=== PATIENT | female | born 1935 | race Caucasian/White ===

== ENCOUNTER 2016-07-20 19:15 | Inpatient (IN) ==
[~2016-07-20 19:15] MED LIST: Aminoglycoside Consult 1 EACH MC ONE
--- NOTE | 2016-07-20 19:48 | Emergency Department Note ---
Disposition Clinical Impression: UTI (urinary tract infection) Disposition: Admitted As Inpatient Condition: Fair Time of Disposition: 00:32 ([facility]) General Adult HPI - General Chief complaint: ED General Medical Stated complaint: Weight loss, weakness, talking less the past few w Time Seen by Provider: 07/20/16 19:30 Source: patient, family, EMS Mode of arrival: EMS Limitations: physical limitation Nursing Notes Reviewed: Yes Vital Signs Reviewed: Yes - History of Present Illness HPI Narrative: Ultimately female brought in from local nursing care facilities recently been treated for outpatient urinary tract infection patiently. Has been losing weight and has not been feeling well.orthostatic secondary to UTI family physician thought might be related to pneumonia she was sent in for evaluation hospitalization based on her abnormal result patient is brought here daughter is concerned that strongly this is UTI only treated for Klebsiella pneumonia patient does not really know why she is here and also she states otherwise no additional complaints could be obtained Onset (ago): unknown Location: other (Generalized) Pain Scale: 0 Consistency: constant Improves with: nothing Worsens with: nothing Associated symptoms: Reports: confusion, loss of appetite, malaise, nausea/ vomiting, weakness. Denies: chest pain, cough, diaphoresis, fever/chills, headaches, rash, shortness of breath, syncope Treatments Prior to Arrival: other (IV gentamicin) - Related Data Home Medications Medication Instructions Recorded Confirmed Alprazolam [Xanax 0.25 MG Tablet] 0.25 mg PO Q4H PRN 11/30/14 07/20/16 Alprazolam [Xanax 0.5 MG Tablet] 0.5 mg PO HS 11/30/14 07/20/16 Fluticasone Propionate Nasal 1 spray NS DAILY 11/30/14 07/20/16 [Flonase] Furosemide [Lasix] 40 mg PO DAILY 11/30/14 07/20/16 HYDROcodone/Acet 5/325 mg [[place] 1 tab PO Q4HR PRN 11/30/14 07/20/16 5-325 mg] Insulin ASPART [NovoLOG] 2 - 10 unit SQ ACHS 11/30/14 07/20/16 Insulin Glargine,Hum.rec.anlog 50 unit SQ HS 11/30/14 07/20/16 [Lantus Solostar] Insulin NPH Hum/Reg Insulin Hm 45 unit SQ QAM 11/30/14 07/20/16 [Humulin 70-30 Vial] Latanoprost [Xalatan] 1 drop BOTH EYES HS 11/30/14 07/20/16 Levothyroxine [Synthroid] 25 mcg PO 0630 11/30/14 07/20/16 Magnesium Oxide [Mag-Ox] 400 mg PO BID 11/30/14 07/20/16 Montelukast [Singulair] 10 mg PO HS 11/30/14 07/20/16 Multivit-Min/FA/Ca Carb/Vit K 1 each PO DAILY 11/30/14 07/20/16 [Women's 50+ Daily Tablet] RisperiDONE [RisperDAL] 0.25 mg PO DAILY 11/30/14 07/20/16 Sertraline [Zoloft] 150 mg PO DAILY 11/30/14 07/20/16 Tiotropium [Spiriva] 18 mcg IH DAILY 11/30/14 07/20/16 Tolterodine Tartrate [Detrol] 2 mg PO BID #0 11/30/14 07/20/16 Zolpidem [Ambien] 10 mg PO HS PRN 11/30/14 07/20/16 Ascorbic Acid [Vitamin C] 500 mg PO BID 12/14/14 07/20/16 Cholecalciferol (Vitamin D3) 1,000 unit PO DAILY 12/14/14 07/20/16 [Vitamin D3] Ipratropium/Albuterol Neb [Duoneb] 3 ml IH TID 12/14/14 07/20/16 Omeprazole [PriLOSEC] 20 mg PO DAILY PRN 12/14/14 07/20/16 Potassium Chloride 10 meq PO DAILY 12/14/14 07/20/16 Benzocaine/Menthol Omari [Cepacol 1 lozenge PO Q4H PRN 12/25/14 07/20/16 Sore Throat Lozenge] GuaiFENesin Liq [Robitussin Liq] 300 mg PO Q6HR PRN 12/25/14 07/20/16 Loratadine [Claritin] 10 mg PO DAILY PRN 12/25/14 07/20/16 Acetaminophen [Tylenol] 650 mg PO Q6H PRN 03/10/15 07/20/16 Acetylcysteine 600 mg PO TID 03/10/15 07/20/16 [C-Ecgpho-r-Cysteine] Alprazolam [Xanax 0.25 MG Tablet] 0.25 mg PO TID 03/10/15 07/20/16 DiphenhydraMINE [Benadryl] 25 mg PO Q6H PRN 03/10/15 07/20/16 L. Rhamnosus GG/Inulin [Culturelle 1 cap PO BID 03/10/15 07/20/16 Capsule] Simethicone [Gas-X] 80 mg PO BID PRN 03/10/15 07/20/16 Propylene Glycol/Peg 400 [Systane 1 drop BOTH EYES BID PRN 06/16/15 07/20/16 Gel Eye Drops] Propylene Glycol/Peg 400 [Systane 1 drop BOTH EYES Q4H PRN 06/16/15 07/20/16 Gel Eye Drops] Albuterol Neb [Proventil Neb] 2.5 mg IH Q2H PRN 06/30/16 07/20/16 Carvedilol 12.5 mg PO BID 06/30/16 07/20/16 Docusate [Colace] 100 mg PO BID 06/30/16 07/20/16 Fluticasone/Salmeterol [Advair 1 each IH BID 06/30/16 07/20/16 250-50 Diskus] Glimepiride [Amaryl] 1 mg PO QAM 06/30/16 07/20/16 Previous Rx's Medication Instructions Recorded Ferrous Sulfate 325 mg PO BIDWM #60 tablet 05/09/16 Allergies Allergy/AdvReac Type Severity Reaction Status Date / Time codeine Allergy unknown Verified 12/14/15 10:43 Penicillins Allergy unknown Verified 12/14/15 10:43 All systems ED: reviewed and negative except as stated. Constitutional: Reports: weakness. Denies: fever, chills Eyes: Denies: eye pain, eye discharge ENT ED: Denies: ear pain, throat pain Cardiovascular: Denies: chest pain, palpitations, dyspnea on exertion Respiratory: Denies: cough, dyspnea, wheezes Gastrointestinal: Reports: nausea. Denies: abdominal pain, vomiting, hematemesis Genitourinary: Reports: urgency, dysuria, other (Urine odor). Denies: frequency Musculoskeletal: Denies: joint swelling Integumentary: Denies: abrasion, lesions Neurological: Reports: weakness. Denies: headache Psychiatric: Denies: anxiety Endocrine: Reports: fatigue Hematological/Lymphatic: Denies: easy bleeding Allergic/Immunologic: Denies: facial swelling Past Medical History - Past Medical History Attestation: Yes The following information was validated with the patient. Source: patient, old records reviewed, nursing notes reviewed Medical history: Reports: diabetes, glaucoma, hyperlipidemia, renal disease Surgical history: Reports: other Psychiatric history: Reports: no psych history - Social History Smoking Status: Unknown if ever smoked Smokeless Tobacco Status: No Alcohol use: Reports: none Drug use: Reports: none Physical Exam - General Limitations: physical limitation General appearance: alert, in no apparent distress - Head Head exam: atraumatic, normocephalic, normal inspection - Eye Eye exam: Present: normal appearance, PERRL, EOMI - ENT ENT exam: normal exam, normal oropharynx, mucous membranes dry, normal external ear exam, other (Tracheostomy in place) - Neck Neck exam: Present: normal inspection, full ROM, trachea midline - Chest Chest inspection: Present: normal inspection, symmetric chest wall rise - Respiratory Respiratory exam: Present: normal lung sounds bilaterally, other (Wheezing and occasional rhonchi noted) - Cardiovascular Cardiovascular exam: Present: regular rate, normal rhythm, normal heart sounds - Abdominal Exam Abdominal exam: Present: soft, Non-Tender, normal bowel sounds. Absent: mass, pulsatile mass - Extremities Exam Extremities exam: Present: normal inspection. Absent: full ROM (No edema to the lower extremities no calf pain elicited on examination) - Expanded Lower Extremity Exam Gait: not tested/not observed - Back Exam Back exam: Present: normal inspection, full ROM. Absent: muscle spasm - Neurological Exam Neurological exam: Present: alert, oriented X3, CN II-XII intact - Psychiatric Psychiatric exam: Present: flat affect - Skin Skin exam: Present: warm, dry, intact, normal color Course Course Narrative: Seen and examined laboratory data was ordered as well as a chest x-ray as well as urinalysis blood cultures were also ordered there was a significant delay in obtaining her blood work once that was obtained I spoke with Dr. Obando has agreed for admission to his services patient was then admitted transferred to medical services on the floor for further management and evaluation per Dr. Obando Vital Signs Temperature 97.9 F 07/20/16 19:18 Pulse Rate 93 07/20/16 19:18 Respiratory Rate 18 07/20/16 19:18 Blood Pressure 126/56 07/20/16 19:18 O2 Sat by Pulse Oximetry 91 07/20/16 19:18 Temperature 97.9 F 07/21/16 00:15 Pulse Rate 106 07/21/16 00:15 Respiratory Rate 18 07/21/16 00:15 Blood Pressure 100/78 07/21/16 00:15 O2 Sat by Pulse Oximetry 93 07/21/16 00:15 Oxygen Delivery Oxygen Delivery Ventilator Medical Decision Making - MDM Narrative Medical decision making narrative: Since had recent multidrug resistant urinary tract infections concerns was that she had developed an upper respiratory tract there was no history of diarrhea which be concerned for C. difficile daughter there was concerned that this is urinary not etiology workup done for weakness - Medical Records Medical records reviewed: Yes I reviewed the patient's medical records. - Lab Data Lab results reviewed: Yes I reviewed the patient's lab results. Result diagrams: 07/20/16 21:06 07/20/16 08:50 Lab Results 07/20/16 07/20/16 07/20/16 Range/Units 08:50 19:46 19:47 WBC (4.3-11.1) K/mcL RBC (3.82-4.97) M/mcL Hgb (11.5-15.4) g/dL Hct (35.3-44.9) % MCV (83.0-100.0) fL MCH (28.0-33.3) pg MCHC (31.6-35.5) g/dL RDW (11.5-14.5) % Plt Count (140-400) K/mcL MPV (9.4-12.4) fL Immature Gran % (0-4) % Seg Neutrophils % % Lymphocytes % % Monocytes % % Eosinophils % % Basophils % % Neutrophils # (1.6-8.9) K/mcL Lymphocytes # (0.6-4.6) K/mcL Monocytes # (0.0-1.3) K/mcL Eosinophils # (0.0-0.6) K/mcL Basophils # (0.0-0.2) K/mcL PT (9.4-12.1) Seconds INR APTT 29.5 (26.0-36.0) Seconds VBG Lactic Acid (0.5-2.2) mmol/L Sodium 137 (136-145) mEq/L Potassium 4.3 (3.5-4.5) mEq/L Chloride 95 L (98-109) mEq/L Carbon Dioxide 24 (19-29) mEq/L BUN 43 H (7-20) mg/dL Creatinine 2.09 H (0.57-1.11) mg/dL Est GFR ( Amer) 28 L (> 60) Est GFR (Non-Af Amer) 23 L (> 60) BUN/Creatinine Ratio 21 (6-26) Glucose 142 H (70-99) mg/dL Calculated Osmolality 297 (280-300) Calcium 10.0 (8.6-10.8) mg/dL Total Bilirubin 0.5 (0.2-1.2) mg/dL AST 22 (5-34) Units/L ALT 27 (0-55) Units/L Alkaline Phosphatase 181 H (38-126) Units/L Troponin I (0-0.03) ng/mL B-Natriuretic Peptide (0-100) pg/mL Serum Total Protein 9.0 H (6.0-8.3) g/dL Albumin 2.6 L (3.5-5.0) g/dL Globulin 6.4 H (2.4-3.5) g/dL Albumin/Globulin Ratio 0.4 L (1.1-2.2) TSH (0.350-4.840) mcIU/mL Urine Color Dark Yellow (Yellow) Urine Clarity Cloudy A (Clear) Urine pH 7.0 (5.0-8.0) pH Units Ur Specific [place] 1.015 (1.010-1.025) Urine Protein >=300 H (Neg-Trace) mg/dL Urine Glucose (UA) Normal (Normal) mg/dL Urine Ketones Negative (Negative) mg/dL Urine Blood Large H (Negative) Urine Nitrite Negative (Negative) Urine Bilirubin Negative (Negative) Urine Urobilinogen Normal (Normal) mg/dL Ur Leukocyte Esterase Large H (Negative) Urine Microscopic WBC TNTC H (0-3) per hpf Ur Culture Indicated? YES A (NO) 07/20/16 07/20/16 07/20/16 Range/Units 19:47 19:47 21:06 WBC 13.9 H (4.3-11.1) K/mcL RBC 4.44 (3.82-4.97) M/mcL Hgb 12.1 (11.5-15.4) g/dL Hct 38.7 (35.3-44.9) % MCV 87.2 (83.0-100.0) fL MCH 27.3 L (28.0-33.3) pg MCHC 31.3 L (31.6-35.5) g/dL RDW 15.2 H (11.5-14.5) % Plt Count 392 (140-400) K/mcL MPV 9.6 (9.4-12.4) fL Immature Gran % 0.4 (0-4) % Seg Neutrophils % 77.6 % Lymphocytes % 14.7 % Monocytes % 6.6 % Eosinophils % 0.5 % Basophils % 0.2 % Neutrophils # 10.8 H (1.6-8.9) K/mcL Lymphocytes # 2.0 (0.6-4.6) K/mcL Monocytes # 0.9 (0.0-1.3) K/mcL Eosinophils # 0.1 (0.0-0.6) K/mcL Basophils # 0.0 (0.0-0.2) K/mcL PT 16.6 H (9.4-12.1) Seconds INR 1.5 APTT (26.0-36.0) Seconds VBG Lactic Acid 1.0 (0.5-2.2) mmol/L Sodium (136-145) mEq/L Potassium (3.5-4.5) mEq/L Chloride (98-109) mEq/L Carbon Dioxide (19-29) mEq/L BUN (7-20) mg/dL Creatinine (0.57-1.11) mg/dL Est GFR ( Amer) (> 60) Est GFR (Non-Af Amer) (> 60) BUN/Creatinine Ratio (6-26) Glucose (70-99) mg/dL Calculated Osmolality (280-300) Calcium (8.6-10.8) mg/dL Total Bilirubin (0.2-1.2) mg/dL AST (5-34) Units/L ALT (0-55) Units/L Alkaline Phosphatase (38-126) Units/L Troponin I (0-0.03) ng/mL B-Natriuretic Peptide (0-100) pg/mL Serum Total Protein (6.0-8.3) g/dL Albumin (3.5-5.0) g/dL Globulin (2.4-3.5) g/dL Albumin/Globulin Ratio (1.1-2.2) TSH (0.350-4.840) mcIU/mL Urine Color (Yellow) Urine Clarity (Clear) Urine pH (5.0-8.0) pH Units Ur Specific [place] (1.010-1.025) Urine Protein (Neg-Trace) mg/dL Urine Glucose (UA) (Normal) mg/dL Urine Ketones (Negative) mg/dL Urine Blood (Negative) Urine Nitrite (Negative) Urine Bilirubin (Negative) Urine Urobilinogen (Normal) mg/dL Ur Leukocyte Esterase (Negative) Urine Microscopic WBC (0-3) per hpf Ur Culture Indicated? (NO) 07/20/16 07/20/16 07/20/16 Range/Units 21:06 21:06 21:09 WBC (4.3-11.1) K/mcL RBC (3.82-4.97) M/mcL Hgb (11.5-15.4) g/dL Hct (35.3-44.9) % MCV (83.0-100.0) fL MCH (28.0-33.3) pg MCHC (31.6-35.5) g/dL RDW (11.5-14.5) % Plt Count (140-400) K/mcL MPV (9.4-12.4) fL Immature Gran % (0-4) % Seg Neutrophils % % Lymphocytes % % Monocytes % % Eosinophils % % Basophils % % Neutrophils # (1.6-8.9) K/mcL Lymphocytes # (0.6-4.6) K/mcL Monocytes # (0.0-1.3) K/mcL Eosinophils # (0.0-0.6) K/mcL Basophils # (0.0-0.2) K/mcL PT (9.4-12.1) Seconds INR APTT (26.0-36.0) Seconds VBG Lactic Acid (0.5-2.2) mmol/L Sodium (136-145) mEq/L Potassium (3.5-4.5) mEq/L Chloride (98-109) mEq/L Carbon Dioxide (19-29) mEq/L BUN (7-20) mg/dL Creatinine (0.57-1.11) mg/dL Est GFR ( Amer) (> 60) Est GFR (Non-Af Amer) (> 60) BUN/Creatinine Ratio (6-26) Glucose (70-99) mg/dL Calculated Osmolality (280-300) Calcium (8.6-10.8) mg/dL Total Bilirubin (0.2-1.2) mg/dL AST (5-34) Units/L ALT (0-55) Units/L Alkaline Phosphatase (38-126) Units/L Troponin I 0.02 (0-0.03) ng/mL B-Natriuretic Peptide 99 (0-100) pg/mL Serum Total Protein (6.0-8.3) g/dL Albumin (3.5-5.0) g/dL Globulin (2.4-3.5) g/dL Albumin/Globulin Ratio (1.1-2.2) TSH 1.837 (0.350-4.840) mcIU/mL Urine Color (Yellow) Urine Clarity (Clear) Urine pH (5.0-8.0) pH Units Ur Specific [place] (1.010-1.025) Urine Protein (Neg-Trace) mg/dL Urine Glucose (UA) (Normal) mg/dL Urine Ketones (Negative) mg/dL Urine Blood (Negative) Urine Nitrite (Negative) Urine Bilirubin (Negative) Urine Urobilinogen (Normal) mg/dL Ur Leukocyte Esterase (Negative) Urine Microscopic WBC (0-3) per hpf Ur Culture Indicated? (NO) - Radiology Data Radiology results reviewed: Yes I reviewed the patient's radiology results. ITS Impressions Chest X-Ray 07/20/16 19:46 IMPRESSION: Stable chest demonstrating hypoaeration at the lung bases D/ / Denys Berumen MD / Denys Berumen MD Interpreting Provider: Denys Berumen MD - EKG Data EKG #1 EKG attestation: Yes I reviewed and interpreted this EKG. EKG results narrative: HR 95 prr 186 QRS 80 QT 338 axis XXXV Critical Care Time Critical Care Time: No
[2016-07-20 20:47] LABS: Eosinophils # 0.1 K/mcL (0.0-0.6)
[2016-07-20 21:10] LABS: Albumin 2.6 g/dL (3.5-5.0); Albumin/Globulin Ratio 0.4 (1.1-2.2); Bilirubin,Total 0.5 mg/dL (0.2-1.2); Globulin 6.4 g/dL (2.4-3.5); Potassium 4.3 mEq/L (3.5-4.5)
[2016-07-20 21:45] LABS: INR 1.5; Prothrombin Time 16.6 Seconds (9.4-12.1)
[2016-07-20 21:48] LABS: Monocytes # 0.9 K/mcL (0.0-1.3)
[2016-07-20 21:49] LABS: Hematocrit 38.7 % (35.3-44.9); Hemoglobin 12.1 g/dL (11.5-15.4); Neutrophils # 10.8 K/mcL (1.6-8.9); Red Blood Count 4.44 M/mcL (3.82-4.97)
[2016-07-20 21:50] LABS: Mean Corpuscular HGB Conc 31.3 g/dL (31.6-35.5); Mean Corpuscular Hemoglobin 27.3 pg (28.0-33.3); Mean Corpuscular Volume 87.2 fL (83.0-100.0); Platelet Count 392 K/mcL (140-400); Red Cell Distribution Width 15.2 % (11.5-14.5)
[2016-07-20 21:51] LABS: Eosinophils % 0.5 %; Immature Granulocytes % 0.4 % (0-4); Lymphocytes % 14.7 %; Mean Platelet Volume 9.6 fL (9.4-12.4); Monocytes % 6.6 %; Segmented Neutrophils % 77.6 %
[2016-07-20 21:52] LABS: Basophils % 0.2 %
[2016-07-20 23:30] LABS: Clarity,Urine Cloudy (Clear); Color,Urine Dark Yellow (Yellow)
[2016-07-20 23:35] LABS: Bilirubin,Urine Negative (Negative); Leukocyte Esterase,Urine Large (Negative)
[2016-07-20 23:36] LABS: Blood,Urine Large (Negative); Glucose,Urine (UA) Normal (Normal); Ketones,Urine Negative (Negative); Specific Gravity,Urine 1.015 (1.010-1.025)
[2016-07-20 23:37] LABS: Protein,Urine >=300 mg/dL (Neg-Trace); Urobilinogen,Urine Normal (Normal)
[2016-07-20 23:38] LABS: Nitrite,Urine Negative (Negative)
[2016-07-20 23:39] LABS: WBC,Urine TNTC per hpf (0-3)
[2016-07-21] MEDS ORDERED: CefTRIAXone 1,000 MG in D5% in Water (Mini-Bag+) 100 ML IVPB STA (00:30)
[2016-07-21] MEDS ORDERED: Vancomycin 1,000 MG in D5% in Water 250 ML IVPB ONE ×2 (00:30→16:10)
[2016-07-21] MEDS ORDERED: D5% in Water 1,000 ML IVC PRN (02:35)
[2016-07-21] MEDS ORDERED: Artificial Tears SOLN 15 ML BOTTLE BOTH EYES PRN (02:35)
[2016-07-21] MEDS ORDERED: Loratadine 10 MG TABLET PO PRN (02:35)
[2016-07-21] MEDS ORDERED: *HR* HYDROcodone/Acet 5/325 mg TABLET PO PRN (02:35)
[2016-07-21] MEDS ORDERED: GuaiFENesin Liq 200 MG/10 ML UDC PO PRN (02:35)
[2016-07-21] MEDS ORDERED: [UNRECOGNIZED DRUG - OTHER] BOTH EYES PRN (02:35)
[2016-07-21] MEDS ORDERED: GENTAMICIN IVPB SCH (02:35)
[2016-07-21] MEDS ORDERED: 0.9 % Sodium Chloride 1,000 ML IVC SCH (02:35)
[2016-07-21] MEDS ORDERED: Naloxone 0.4 MG/ML INJ IVP PRN (02:35)
[2016-07-21] MEDS ORDERED: Acetaminophen 325 MG TABLET PO PRN (02:35)
[2016-07-21] MEDS ORDERED: Ibuprofen 400 MG TABLET PO PRN (02:35)
[2016-07-21] MEDS ORDERED: *HR* Promethazine 25 MG/ML VIAL IVP PRN (02:35)
[2016-07-21] MEDS ORDERED: Dextrose Gel 15 GM PO PRN ×2 (02:35)
[2016-07-21] MEDS ORDERED: POLYETHYLENE GLYCOL 400 BOTH EYES PRN (02:35)
[2016-07-21] MEDS ORDERED: PROPYLENE GLYCOL BOTH EYES PRN (02:35)
[2016-07-21] MEDS ORDERED: *HR* Dextrose 50 % in Water (Syg) 50 ML SYRINGE IVP PRN (02:35)
[2016-07-21] MEDS ORDERED: Simethicone 80 MG TAB.CHEW PO PRN (02:35)
[2016-07-21] MEDS: Levothyroxine 25 MCG TABLET PO SCH (05:31)
[2016-07-21] MEDS ORDERED: *HR* Glimepiride 2 MG TABLET PO SCH (07:30)
[2016-07-21 07:58] LABS: Basophils % 0.2 %; Eosinophils % 0.2 %; Hematocrit 37.3 % (35.3-44.9); Hemoglobin 11.8 g/dL (11.5-15.4); Immature Granulocytes % 0.4 % (0-4); Lymphocytes # 1.7 K/mcL (0.6-4.6); Lymphocytes % 12.2 %; Mean Corpuscular HGB Conc 31.6 g/dL (31.6-35.5); Mean Corpuscular Hemoglobin 27.4 pg (28.0-33.3); Mean Corpuscular Volume 86.5 fL (83.0-100.0); Mean Platelet Volume 10.4 fL (9.4-12.4); Monocytes # 0.8 K/mcL (0.0-1.3); Monocytes % 5.9 %; Neutrophils # 11.4 K/mcL (1.6-8.9); Platelet Count 315 K/mcL (140-400); Red Blood Count 4.31 M/mcL (3.82-4.97); Red Cell Distribution Width 15.5 % (11.5-14.5); Segmented Neutrophils % 81.1 %
[2016-07-21 08:12] LABS: Calcium 9.8 mg/dL (8.6-10.8); Magnesium 2.6 mg/dL (1.6-2.6); Phosphorous 4.6 mg/dL (2.3-4.7); Potassium 4.4 mEq/L (3.5-4.5)
[2016-07-21] MEDS: Cholecalciferol (D-3) 1,000 UNIT TABLET PO SCH (08:17)
[2016-07-21] MEDS: Multivit/Ca/Min/Fe/FA 1 TAB TABLET PO SCH (08:17)
[2016-07-21] MEDS: Lactobacillus 1 EACH CAP.SPRINK PO SCH ×2 (08:18→21:42)
[2016-07-21] MEDS: Ipratropium/Albuterol Neb 3 ML IH SCH ×3 (08:27→14:01)
[2016-07-21] MEDS: Tolterodine LA (24 HR) 2 MG CAP.ER.24H PO SCH ×2 (08:35→21:47)
[2016-07-21] MEDS: Insulin LISPRO 300 UNITS/3 ML VIAL SQ SCH ×4 (08:35→21:54)
[2016-07-21] MEDS: Budesonide/Formoterol 80/4.5 MDI IH SCH ×2 (08:37→22:15)
[2016-07-21] MEDS: Tiotropium 18 MCG inhalation IH SCH (08:38)
[2016-07-21] MEDS ORDERED: Gentamicin 120 MG in 0.9 % Sodium Chloride 100 ML IVPB ONE (09:00)
[2016-07-21] MEDS ORDERED: Ascorbic Acid 500 MG TABLET PO SCH (09:00)
[2016-07-21] MEDS ORDERED: Magnesium Oxide 400 MG TABLET PO SCH (09:00)
[2016-07-21] MEDS ORDERED: Insulin NPH/REG 70/30 100 UNIT/ML (x5UNIT) SQ SCH (09:00)
[2016-07-21] MEDS ORDERED: Gentamicin 80 MG in 0.9 % Sodium Chloride 100 ML IVPB ONE (09:00)
[2016-07-21] MEDS ORDERED: Furosemide 40 MG TABLET PO SCH (09:00)
[2016-07-21] MEDS ORDERED: Gentamicin 40 MG in 0.9 % Sodium Chloride 100 ML IVPB ONE (09:00)
[2016-07-21] MEDS: Miconazole 2% cream 118 GM TUBE TP SCH ×2 (09:05→21:48)
[2016-07-21] MEDS: Fluticasone Propionate Nasal 50 MCG/SPRAY BOTTLE NS SCH (09:48)
[2016-07-21 12:07] LABS: ABG HCO3 30.8 mEQ/L (21-27); ABG PCO2 45 mmHg (35-45); ABG PH 7.45 pH Units (7.32-7.45); ABG PO2 77 mmHg (85-104); ABG TCO2 32.1 mEq/L (20-26)
[2016-07-21 12:08] LABS: ABG Base Excess 6.7 mEq/L (-2.0 to 3.0); ABG Oxygen Saturation 96 % (95-98); Blood Gas FiO2 44 %; Blood Gas Liter Flow 6 L/MIN; Blood Gas Respiration Rate 14
[2016-07-21 12:09] LABS: Blood Gas PEEP 5 cm H2O; Blood Gas VT 500 cc
--- NOTE | 2016-07-21 13:32 | Electrocardiograph Report ---
[address] [address] Test Date: 2016-07-20 Pat Name: Mag Monique Department: [id number] Room: [facility] Gender: F Combination Presser: Emery : 1935 Requested By: Lorie Luo Order Number: [id number] Reading MD: Tanvir Saldana MD Measurements Intervals [employer] Rate: 95 P: 72 NH: 186 QRS: 35 QRSD: 80 T: 4 QT: 338 QTc: 391 Interpretive Statements SINUS RHYTHM LOW QRS VOLTAGE IN PRECORDIAL LEADS Electronically Signed On 07-21-2016 13:31:21 EDT by Tanvir Saldana MD
[2016-07-21] MEDS: Albuterol 2.5 MG/3 ML NEBULIZER IH PRN (13:58)
--- NOTE | 2016-07-21 15:40 | Internal Med History&Physical ---
Date of Encounter: 07/21/16 Time of Encounter: 15:10 Assessment and Plan (1) Pneumonia Current visit: No Status: Acute Chest CT shows left lower lobe effusion with possible compressive atelectasis and likely pneumonia based on clinical findings. She will be started on Azactam , vancomycin, and clindamycin. Lactobacillus will be given. Culture will be obtained prior to initiating antibiotics. Qualifiers: Pneumonia type: due to unspecified organism Laterality: bilateral Lung location: lower lobe of lung Qualified Code(s): J18.9 - Pneumonia, unspecified organism (2) Diabetes Current visit: No Status: Chronic Hemoglobin A1c was 6.1% on 07/20/2016. She appears to be diet-controlled Qualifiers: Diabetes mellitus type: type 2 Diabetes mellitus complication status: with kidney complications Diabetes mellitus complication detail: with chronic kidney disease Diabetes mellitus lobsterman insulin use: without lobsterman use Chronic kidney disease stage: stage 3 (moderate) Qualified Code(s): E11.22 - Type 2 diabetes mellitus with diabetic chronic kidney disease; N18.3 - Chronic kidney disease, stage 3 (moderate) (3) Hypothyroid Current visit: No Status: Chronic TSH was normal at 1.837 on 07/20/2016. Continue present dose Synthroid Qualifiers: Hypothyroidism type: unspecified Qualified Code(s): E03.9 - Hypothyroidism , unspecified (4) CKD (chronic kidney disease) stage 3, GFR 30-59 ml/min Current visit: Yes Status: Acute We will monitor renal indices. Internal Medicine - H&P: HPI Chief complaint: Weakness, lethargy, possible UTI Admitted From: Long-term Nursing Facility Plans for Post Hospital Care: Transfer [facility] History of present illness: Ms. Monique is a 81 year old female who [facility] after her daughter became concerned she might have recurrent urinary tract infection. The patient had been hospitalized at [facility] June 30- with diagnosis of UTI. Urine culture showed Escherichia coli and MDRo Klebsiella. The discharge summary 07/04/2016 states a second culture showed no MDRO and she was treated only for the Escherichia coli. [facility] the [facility] I gave her 5 days of IV gentamicin to treat MDR Klebsiella. She has remained lethargic and did not appear back to her baseline. She was evaluated in emergency room and admitted to [facility] floor for ongoing care needs. She is lethargic at this time and does not attempt to communicate. She does follow some commands. She has chronic respiratory failure with tracheostomy and ventilator dependency. Past Med Surg Social Fam HX - Past Medical History Medical history: COPD, diabetes, glaucoma, hyperlipidemia, renal disease Psychiatric history: anxiety, depression - Past Surgical History Surgical History: appendectomy - Social History Smoking Status: Never smoker Smokeless Tobacco Status: No Alcohol use: none Drug use: none Internal Medicine - H&P: Meds Alprazolam [Xanax 0.25 MG Tablet] 0.25 mg PO Q4H PRN 11/30/14 [History] Alprazolam [Xanax 0.5 MG Tablet] 0.5 mg PO HS 11/30/14 [History] Fluticasone Propionate Nasal [Flonase] 1 spray NS DAILY 11/30/14 [History] Furosemide [Lasix] 40 mg PO DAILY 11/30/14 [History] HYDROcodone/Acet 5/325 mg [[place] 5-325 mg] 1 tab PO Q4HR PRN 11/30/14 [History] Insulin ASPART [NovoLOG] 2 - 10 unit SQ ACHS 11/30/14 [History] Latanoprost [Xalatan] 1 drop BOTH EYES HS 11/30/14 [History] Levothyroxine [Synthroid] 25 mcg PO 0630 11/30/14 [History] Magnesium Oxide [Mag-Ox] 400 mg PO BID 11/30/14 [History] Montelukast [Singulair] 10 mg PO HS 11/30/14 [History] Multivit-Min/FA/Ca Carb/Vit K [Women's 50+ Daily Tablet] 1 each PO DAILY [History] RisperiDONE [RisperDAL] 0.25 mg PO DAILY 11/30/14 [History] Sertraline [Zoloft] 150 mg PO DAILY 11/30/14 [History] Tiotropium [Spiriva] 18 mcg IH DAILY 11/30/14 [History] Tolterodine Tartrate [Detrol] 2 mg PO BID #0 11/30/14 [History] Zolpidem [Ambien] 10 mg PO HS PRN 11/30/14 [History] Ascorbic Acid [Vitamin C] 500 mg PO BID 12/14/14 [History] Cholecalciferol (Vitamin D3) [Vitamin D3] 1,000 unit PO DAILY 12/14/14 [History] Ipratropium/Albuterol Neb [Duoneb] 3 ml IH TID 12/14/14 [History] Omeprazole [PriLOSEC] 20 mg PO DAILY PRN 12/14/14 [History] Potassium Chloride 10 meq PO DAILY 12/14/14 [History] Benzocaine/Menthol [place] [Cepacol Sore Throat Lozenge] 1 lozenge PO Q4H PRN [History] GuaiFENesin Liq [Robitussin Liq] 300 mg PO Q6HR PRN 12/25/14 [History] Loratadine [Claritin] 10 mg PO DAILY PRN 12/25/14 [History] Acetaminophen [Tylenol] 650 mg PO Q6H PRN 03/10/15 [History] Acetylcysteine [U-Vfyorc-i-Cysteine] 600 mg PO TID 03/10/15 [History] Alprazolam [Xanax 0.25 MG Tablet] 0.25 mg PO TID 03/10/15 [History] Simethicone [Gas-X] 80 mg PO BID PRN 03/10/15 [History] Propylene Glycol/Peg 400 [Systane Gel Eye Drops] 1 drop BOTH EYES Q4H PRN [History] Ferrous Sulfate 325 mg PO BIDWM #60 tablet 05/09/16 [Rx] Albuterol Neb [Proventil Neb] 2.5 mg IH Q2H PRN 06/30/16 [History] Carvedilol 12.5 mg PO BID 06/30/16 [History] Docusate [Colace] 100 mg PO BID 06/30/16 [History] Fluticasone/Salmeterol [Advair 250-50 Diskus] 1 each IH BID 06/30/16 [History] Allergies codeine Allergy (Verified 12/14/15 10:43) unknown Penicillins Allergy (Verified 12/14/15 10:43) unknown All Systems PM: A 10-system review of systems was performed and is negative for pertinent findings except as documented above in the HPI. Review of systems: Gen.: Her weight has decreased from 212 pounds December 2015 to 188 pounds July 2016. This was intentional Cardiovascular: She has a diagnosis of heart failure and hypertension. There is no known DVT or pulmonary embolus or past CO Respiratory: She has chronic respiratory failure with COPD and is ventilator dependent. Weaning trials 2-3 years ago [facility] the [facility] were unsuccessful. She has QUIQUE but is status post tracheostomy. Smoking history is not known. GI: She does not have known disorders of her liver gallbladder or exocrine pancreas : She has chronic kidney disease stage III and follows with nephrology practice. She does not have other known kidney or bladder disorders Neurologic: She has not had large distribution strokes or seizures. Endocrine: She has been diagnosed with DM 2 but recent weight loss has allowed insulin to be discontinued to avoid hypoglycemia. She does not have known thyroid disease or hyperlipidemia Hematology/oncology: She has had anemia but no known internal malignancies Psychiatric: She has a diagnosis of depression but no other known mental health issues [place] skeletal: She has DJD but no known gout or other bone joint or muscle disorders. - Constitutional Vitals: Temp Pulse Resp BP Pulse Ox 99.8 F H 114 14 106/65 93 07/21/16 11:40 07/21/16 11:40 07/21/16 14:09 07/21/16 11:40 07/21/16 14:09 Exam: Gen.: She is a well-developed well-nourished female lying in bed who appears in no acute distress. HEENT: Head is atraumatic and normocephalic. Eyes: EOMI. There is no scleral icterus. Mouth: Mucosa is moist. Neck: Tracheostomy is in place in the lower anterior neck area and is connected to ventilator. There is no thyromegaly or adenopathy noted. Heart: Regular without murmurs gallops or ectopics. Tones are soft. Lungs: She has diminished breath sounds diffusely with ventilator transmitted noise. No wheezes or crackles are heard. Abdomen: Soft and nontender. No masses or guarding are noted. She has a midline anterior wall ventral hernia that is nontender to palpation and easily reducible. Extremities: There is no cyanosis edema or clubbing noted. Dorsalis pedis and posterior tibial pulses are trace palpable bilaterally. Neurologic: Mental status: She is not talkative and does not attempt to answer questions. She follows a few commands. Cranial nerves: Smile is symmetric. Forehead wrinkles bilaterally. Tongue protrudes midline. EOMI. Motor: There is no pronator drift. Cerebellar: Finger to nose is intact bilaterally. Skin: Warm and dry Internal Med - H&P Results - Labs CBC & Chem 7: 07/21/16 07:40 07/21/16 07:30 Labs: Short CBC 07/21/16 Range/Units 07:40 WBC 14.0 H (4.3-11.1) K/mcL Hgb 11.8 (11.5-15.4) g/dL Hct 37.3 (35.3-44.9) % Plt Count 315 (140-400) K/mcL Neutrophils # 11.4 H (1.6-8.9) K/mcL BMP 07/21/16 07:30 Sodium 136 Potassium 4.4 Chloride 95 L Carbon Dioxide 26 BUN 48 H Creatinine 2.22 H Glucose 191 H Calcium 9.8 - ABG Interpretation ABG results: 07/21/16 11:52 ABG pH 7.45 ABG pCO2 45 ABG pO2 77 L ABG HCO3 30.8 H ABG Total CO2 32.1 H ABG O2 Saturation 96 ABG Base Excess 6.7 H - Impressions ITS Impressions Chest CT 07/21/16 02:35 IMPRESSION: Multifocal areas of tree-in-bud opacities are seen, suspicious for atypical pneumonia versus chronic interstitial changes. These findings were seen on the prior CT. Bronchiectasis is seen involving the bilateral lower lobes. Atelectasis/scarring is seen within the left lower lobe. This is stable since the prior exam. Small left pleural effusion is noted. Stable mediastinal lymphadenopathy. D/ / Darlin Adame MD / Darlin Adame MD Interpreting Provider: Darlin Adame MD
[2016-07-21] MEDS ORDERED: Aztreonam 500 MG in D5% in Water (Mini-Bag+) 100 ML IVPB SCH (16:00)
[2016-07-21] MEDS ORDERED: Vancomycin 1,250 MG in D5% in Water 250 ML IVPB SCH (16:00)
[2016-07-21] MEDS: Clindamycin 600 MG/50 ML 600 MG/50 ML IV.SOLN IVPB SCH (16:43)
[2016-07-21] MEDS: Ascorbic Acid 500 MG TABLET PO SCH (16:44)
[2016-07-21] MEDS ORDERED: Insulin DETEMIR 100 UNIT/ML X5UNITS SQ SCH (21:00)
[2016-07-21] MEDS: Latanoprost 2.5 ML BOTTLE BOTH EYES SCH (21:47)
[2016-07-22] MEDS ORDERED: Aztreonam 500 MG in D5% in Water 100 ML IVPB SCH
[2016-07-22] MEDS: Clindamycin 600 MG/50 ML 600 MG/50 ML IV.SOLN IVPB SCH ×3 (00:05→16:05)
[2016-07-22] MEDS: Levothyroxine 25 MCG TABLET PO SCH (05:53)
[2016-07-22] MEDS ORDERED: *HR* Enoxaparin 30 MG/0.3 ML SYRINGE SQ SCH ×2 (06:00→13:15)
[2016-07-22 06:23] LABS: Basophils % 0.2 %; Eosinophils % 0.1 %; Hematocrit 30.7 % (35.3-44.9); Hemoglobin 9.8 g/dL (11.5-15.4); Immature Granulocytes % 0.6 % (0-4); Lymphocytes # 2.2 K/mcL (0.6-4.6); Lymphocytes % 13.1 %; Mean Corpuscular HGB Conc 31.9 g/dL (31.6-35.5); Mean Corpuscular Hemoglobin 27.5 pg (28.0-33.3); Mean Platelet Volume 9.5 fL (9.4-12.4); Monocytes # 0.9 K/mcL (0.0-1.3); Monocytes % 5.3 %; Platelet Count 287 K/mcL (140-400); Red Blood Count 3.57 M/mcL (3.82-4.97); Red Cell Distribution Width 15.3 % (11.5-14.5); Segmented Neutrophils % 80.7 %
[2016-07-22 07:08] LABS: Neutrophils # 13.7 K/mcL (1.6-8.9)
[2016-07-22 07:14] LABS: Albumin 2.2 g/dL (3.5-5.0); Albumin/Globulin Ratio 0.4 (1.1-2.2); Bilirubin,Total 1.4 mg/dL (0.2-1.2); Calcium 9.2 mg/dL (8.6-10.8); Globulin 5.4 g/dL (2.4-3.5); Potassium 4.4 mEq/L (3.5-4.5); Total Protein 7.6 g/dL (6.0-8.3)
[2016-07-22] MEDS: Albuterol 2.5 MG/3 ML NEBULIZER IH PRN ×3 (08:55→21:40)
[2016-07-22] MEDS: Budesonide/Formoterol 80/4.5 MDI IH SCH ×2 (09:00→21:40)
[2016-07-22] MEDS: Tiotropium 18 MCG inhalation IH SCH (09:13)
[2016-07-22] MEDS: Insulin LISPRO 300 UNITS/3 ML VIAL SQ SCH ×4 (09:29→21:56)
[2016-07-22] MEDS: Tolterodine LA (24 HR) 2 MG CAP.ER.24H PO SCH ×2 (09:31→21:56)
[2016-07-22] MEDS: Fluticasone Propionate Nasal 50 MCG/SPRAY BOTTLE NS SCH (09:31)
[2016-07-22] MEDS: Multivit/Ca/Min/Fe/FA 1 TAB TABLET PO SCH (09:32)
[2016-07-22] MEDS: Ascorbic Acid 500 MG TABLET PO SCH (09:32)
[2016-07-22] MEDS: Lactobacillus 1 EACH CAP.SPRINK PO SCH ×2 (09:32→21:55)
[2016-07-22] MEDS: Miconazole 2% cream 118 GM TUBE TP SCH ×2 (09:32→21:57)
[2016-07-22] MEDS: Cholecalciferol (D-3) 1,000 UNIT TABLET PO SCH (09:32)
[2016-07-22] MEDS ORDERED: Gentamicin 90 MG in 0.9 % Sodium Chloride 100 ML IVPB SCH (10:00)
--- NOTE | 2016-07-22 11:38 | Internal Med Progress Note ---
Date of Encounter: 07/22/16 Time of Encounter: 11:25 - Assessment and plan (1) Pneumonia Current Visit: No Status: Acute Assessment and plan: July 22. Continue Azactam, vancomycin, and clindamycin with lactobacillus. Qualifiers: Pneumonia type: due to unspecified organism Laterality: bilateral Lung location: lower lobe of lung Qualified Code(s): J18.9 - Pneumonia, unspecified organism (2) Diabetes Current Visit: No Status: Chronic Assessment and plan: July 22. Hemoglobin A1c was 6.1% on 07/20/2016. She appears to be diet controlled. Qualifiers: Diabetes mellitus type: type 2 Diabetes mellitus complication status: with kidney complications Diabetes mellitus complication detail: with chronic kidney disease Diabetes mellitus longterm insulin use: without longterm use Chronic kidney disease stage: stage 3 (moderate) Qualified Code(s): E11.22 - Type 2 diabetes mellitus with diabetic chronic kidney disease; N18.3 - Chronic kidney disease, stage 3 (moderate) (3) Hypothyroid Current Visit: No Status: Chronic Assessment and plan: July 22. TSH was normal at 1.837 on 07/20/2016. Continue Synthroid Qualifiers: Hypothyroidism type: unspecified Qualified Code(s): E03.9 - Hypothyroidism , unspecified (4) CKD (chronic kidney disease) stage 3, GFR 30-59 ml/min Current Visit: Yes Status: Acute Assessment and plan: July 22. Renal indices have worsened. Continue IV fluids and recheck labs in a.m. (5) Kidney stones Current Visit: Yes Status: Acute Assessment and plan: July 22. Will send stones for composition analysis. (6) UTI (urinary tract infection) Current Visit: No Status: Acute Assessment and plan: July 22. Continue empiric antibiotics with lactobacillus. Qualifiers: Urinary tract infection type: site unspecified Hematuria presence: without hematuria Qualified Code(s): N39.0 - Urinary tract infection, site not specified - Subjective Interval history: July 22. She has no new complaints. She denies pain or dyspnea - Constitutional Vitals: Temp Pulse Resp BP Pulse Ox 98.6 F 90 14 105/54 94 07/22/16 08:59 07/22/16 08:59 07/22/16 11:34 07/22/16 08:59 07/22/16 09:13 Exam: She is resting comfortably in bed. She is slightly more responsive to questions today. Heart is regular without murmurs gallops or ectopics. Lungs show ventilator transmitted sounds with no wheezes or crackles heard. Extremities show no edema. I reviewed her medications and labs. I note preliminary reports back on sputum and urine cultures. She passed 2 kidney stones during the night Internal Medicine: Result - Labs CBC & Chem 7: 07/22/16 06:15 07/22/16 06:15 Labs: Short CBC 07/22/16 Range/Units 06:15 WBC 17.0 H (4.3-11.1) K/mcL Hgb 9.8 L D (11.5-15.4) g/dL Hct 30.7 L (35.3-44.9) % Plt Count 287 (140-400) K/mcL Neutrophils # 13.7 H (1.6-8.9) K/mcL BMP 07/22/16 06:15 Sodium 132 L Potassium 4.4 Chloride 93 L Carbon Dioxide 25 BUN 56 H Creatinine 2.96 H Glucose 155 H Calcium 9.2 Liver Function 07/22/16 Range/Units 06:15 Total Bilirubin 1.4 H D (0.2-1.2) mg/dL AST 36 H (5-34) Units/L ALT 35 (0-55) Units/L Alkaline Phosphatase 178 H (38-126) Units/L Albumin 2.2 L (3.5-5.0) g/dL - ABG Interpretation ABG results: ABG ABG pH 7.45 pH Units (7.32-7.45) 07/21/16 11:52 ABG pCO2 45 mmHg (35-45) 07/21/16 11:52 ABG pO2 77 mmHg (85-104) L 07/21/16 11:52 ABG O2 Saturation 96 % (95-98) 07/21/16 11:52 PT/INR, D-dimer PT 16.6 Seconds (9.4-12.1) H 07/20/16 19:47 Consult Discharge Plan - Plan Referrals: Chu Obando MD [Primary Care Provider] -
[2016-07-22] MEDS ORDERED: *HR* Enoxaparin 40 MG/0.4 ML SYRINGE SQ SCH (13:30)
[2016-07-22] MEDS: Aztreonam 500 MG in D5% in Water 100 ML IVPB SCH (13:35)
[2016-07-22] MEDS ORDERED: Vancomycin 1,000 MG in D5% in Water 250 ML IVPB ONE (17:00)
[2016-07-22] MEDS: Latanoprost 2.5 ML BOTTLE BOTH EYES SCH (21:58)
[2016-07-23] MEDS: Aztreonam 500 MG in D5% in Water 100 ML IVPB SCH ×2 (01:19→22:46)
[2016-07-23] MEDS: Clindamycin 600 MG/50 ML 600 MG/50 ML IV.SOLN IVPB SCH ×3 (01:19→18:24)
[2016-07-23 05:46] LABS: Basophils % 0.1 %; Eosinophils % 0.2 %; Hematocrit 28.2 % (35.3-44.9); Immature Granulocytes % 0.7 % (0-4); Lymphocytes # 1.8 K/mcL (0.6-4.6); Lymphocytes % 10.1 %; Mean Corpuscular HGB Conc 31.9 g/dL (31.6-35.5); Mean Corpuscular Hemoglobin 27.4 pg (28.0-33.3); Mean Corpuscular Volume 85.7 fL (83.0-100.0); Mean Platelet Volume 10.1 fL (9.4-12.4); Monocytes % 5.8 %; Neutrophils # 14.8 K/mcL (1.6-8.9); Platelet Count 261 K/mcL (140-400); Red Blood Count 3.29 M/mcL (3.82-4.97); Red Cell Distribution Width 15.2 % (11.5-14.5); Segmented Neutrophils % 83.1 %
[2016-07-23 06:01] LABS: Albumin/Globulin Ratio 0.4 (1.1-2.2); Bilirubin,Total 0.9 mg/dL (0.2-1.2); Calcium 8.9 mg/dL (8.6-10.8); Globulin 5.2 g/dL (2.4-3.5); Total Protein 7.2 g/dL (6.0-8.3)
[2016-07-23] MEDS: Levothyroxine 25 MCG TABLET PO SCH (06:06)
[2016-07-23] MEDS: *HR* Enoxaparin 30 MG/0.3 ML SYRINGE SQ SCH (06:06)
[2016-07-23] MEDS: Tolterodine LA (24 HR) 2 MG CAP.ER.24H PO SCH ×2 (09:34→22:20)
[2016-07-23] MEDS: Multivit/Ca/Min/Fe/FA 1 TAB TABLET PO SCH (09:35)
[2016-07-23] MEDS: Cholecalciferol (D-3) 1,000 UNIT TABLET PO SCH (09:35)
[2016-07-23] MEDS: Lactobacillus 1 EACH CAP.SPRINK PO SCH ×2 (09:36→22:20)
[2016-07-23] MEDS: Fluticasone Propionate Nasal 50 MCG/SPRAY BOTTLE NS SCH (09:48)
[2016-07-23] MEDS: Miconazole 2% cream 118 GM TUBE TP SCH (09:48)
[2016-07-23] MEDS ORDERED: Tiotropium 18 MCG inhalation IH SCH (10:00)
[2016-07-23] MEDS: Budesonide/Formoterol 80/4.5 MDI IH SCH ×2 (10:13→22:55)
--- NOTE | 2016-07-23 14:57 | Internal Med Progress Note ---
Date of Encounter: 07/23/16 Time of Encounter: 14:45 - Assessment and plan (1) Pneumonia Current Visit: No Status: Acute Assessment and plan: July 22. Continue Azactam, vancomycin, and clindamycin with lactobacillus. July 23. Sputum culture final report is pending. Continue present regimen for now Qualifiers: Pneumonia type: due to unspecified organism Laterality: bilateral Lung location: lower lobe of lung Qualified Code(s): J18.9 - Pneumonia, unspecified organism (2) Diabetes Current Visit: No Status: Chronic Assessment and plan: July 22. Hemoglobin A1c was 6.1% on 07/20/2016. She appears to be diet controlled. Qualifiers: Diabetes mellitus type: type 2 Diabetes mellitus complication status: with kidney complications Diabetes mellitus complication detail: with chronic kidney disease Diabetes mellitus barker peeler insulin use: without alf use Chronic kidney disease stage: stage 3 (moderate) Qualified Code(s): E11.22 - Type 2 diabetes mellitus with diabetic chronic kidney disease; N18.3 - Chronic kidney disease, stage 3 (moderate) (3) Hypothyroid Current Visit: No Status: Chronic Assessment and plan: July 22. TSH was normal at 1.837 on 07/20/2016. Continue Synthroid Qualifiers: Hypothyroidism type: unspecified Qualified Code(s): E03.9 - Hypothyroidism , unspecified (4) CKD (chronic kidney disease) stage 3, GFR 30-59 ml/min Current Visit: Yes Status: Acute Assessment and plan: July 22. Renal indices have worsened. Continue IV fluids and recheck labs in a.m. July 23. Renal indices have improved. Continue present regimen (5) Kidney stones Current Visit: Yes Status: Acute Assessment and plan: July 22. Will send stones for composition analysis. July 23. Await kidney stone composition analysis (6) UTI (urinary tract infection) Current Visit: No Status: Acute Assessment and plan: July 22. Continue empiric antibiotics with lactobacillus. July 23. Final urine culture report is pending. Continue present regimen for now Qualifiers: Urinary tract infection type: site unspecified Hematuria presence: without hematuria Qualified Code(s): N39.0 - Urinary tract infection, site not specified - Subjective Interval history: July 22. She has no new complaints. She denies pain or dyspnea July 23. She has no new complaints. - Constitutional Vitals: Temp Pulse Resp BP Pulse Ox 98.1 F 87 16 106/59 98 07/23/16 14:45 07/23/16 14:45 07/23/16 14:45 07/23/16 14:45 07/23/16 14:45 Exam: She is resting comfortably in bed. Her eyes are open and she nods and smiles appropriately. Heart is regular without murmurs gallops or ectopics. Lungs are clear anteriorly. Legs show no edema. I reviewed her medications and lab results. Internal Medicine: Result - Labs CBC & Chem 7: 07/23/16 04:05 07/23/16 04:05 Labs: Short CBC 07/23/16 Range/Units 04:05 WBC 17.8 H (4.3-11.1) K/mcL Hgb 9.0 L (11.5-15.4) g/dL Hct 28.2 L (35.3-44.9) % Plt Count 261 (140-400) K/mcL Neutrophils # 14.8 H (1.6-8.9) K/mcL BMP 07/23/16 04:05 Sodium 131 L Potassium 4.0 Chloride 93 L Carbon Dioxide 23 BUN 49 H Creatinine 2.36 H Glucose 35 L* Calcium 8.9 Liver Function 07/23/16 Range/Units 04:05 Total Bilirubin 0.9 (0.2-1.2) mg/dL AST 21 (5-34) Units/L ALT 25 (0-55) Units/L Alkaline Phosphatase 163 H (38-126) Units/L Albumin 2.0 L (3.5-5.0) g/dL - ABG Interpretation ABG results: ABG ABG pH 7.45 pH Units (7.32-7.45) 07/21/16 11:52 ABG pCO2 45 mmHg (35-45) 07/21/16 11:52 ABG pO2 77 mmHg (85-104) L 07/21/16 11:52 ABG O2 Saturation 96 % (95-98) 07/21/16 11:52 PT/INR, D-dimer PT 16.6 Seconds (9.4-12.1) H 07/20/16 19:47 Consult Discharge Plan - Plan Referrals: Chu Obando MD [Primary Care Provider] -
[2016-07-23] MEDS ORDERED: Gentamicin 90 MG in 0.9 % Sodium Chloride 100 ML IVPB SCH (16:00)
[2016-07-23] MEDS: Latanoprost 2.5 ML BOTTLE BOTH EYES SCH (22:48)
[2016-07-24] MEDS: Miconazole 2% cream 118 GM TUBE TP SCH ×2 (00:04→08:54)
[2016-07-24] MEDS ORDERED: Clindamycin 600 MG/50 ML 600 MG/50 ML IV.SOLN IVPB SCH (04:00)
[2016-07-24] MEDS ORDERED: Gentamicin 90 MG in 0.9 % Sodium Chloride 100 ML IVPB SCH (04:00)
[2016-07-24] MEDS: Aztreonam 500 MG in D5% in Water 100 ML IVPB SCH (04:14)
[2016-07-24 05:28] LABS: Basophils % 0.1 %; Eosinophils % 0.3 %; Hematocrit 29.4 % (35.3-44.9); Hemoglobin 9.4 g/dL (11.5-15.4); Immature Granulocytes % 0.8 % (0-4); Lymphocytes # 1.7 K/mcL (0.6-4.6); Lymphocytes % 12.1 %; Mean Corpuscular Hemoglobin 27.4 pg (28.0-33.3); Mean Corpuscular Volume 85.7 fL (83.0-100.0); Monocytes % 6.7 %; Neutrophils # 11.5 K/mcL (1.6-8.9); Platelet Count 282 K/mcL (140-400); Red Blood Count 3.43 M/mcL (3.82-4.97); Red Cell Distribution Width 15.5 % (11.5-14.5)
[2016-07-24 05:44] LABS: Calcium 9.1 mg/dL (8.6-10.8); Potassium 3.7 mEq/L (3.5-4.5)
[2016-07-24] MEDS: Levothyroxine 25 MCG TABLET PO SCH (06:05)
[2016-07-24] MEDS: *HR* Enoxaparin 30 MG/0.3 ML SYRINGE SQ SCH (06:05)
[2016-07-24] MEDS: Tolterodine LA (24 HR) 2 MG CAP.ER.24H PO SCH (08:50)
[2016-07-24] MEDS: Cholecalciferol (D-3) 1,000 UNIT TABLET PO SCH (08:52)
[2016-07-24] MEDS: Multivit/Ca/Min/Fe/FA 1 TAB TABLET PO SCH (08:52)
[2016-07-24] MEDS: Lactobacillus 1 EACH CAP.SPRINK PO SCH (08:54)
[2016-07-24] MEDS: Fluticasone Propionate Nasal 50 MCG/SPRAY BOTTLE NS SCH (08:54)
[2016-07-24] MEDS ORDERED: *HR* EPINEPHrine 1 MG/10 ML SYRINGE ONE (09:30)
[2016-07-24] MEDS ORDERED: *HR* Atropine Sulfate 1 MG/10 ML SYRINGE ONE (09:30)
--- NOTE | 2016-07-24 10:36 | Discharge Summary ---
Date of Encounter: 07/24/16 Time of Encounter: 09:45 - Discharge Diagnosis (1) Pneumonia Priority: Primary Status: Acute Qualifiers: Pneumonia type: due to unspecified organism Laterality: bilateral Lung location: lower lobe of lung Qualified Code(s): J18.9 - Pneumonia, unspecified organism (2) Diabetes Priority: Secondary Status: Chronic Qualifiers: Diabetes mellitus type: type 2 Diabetes mellitus complication status: with kidney complications Diabetes mellitus complication detail: with chronic kidney disease Diabetes mellitus halfway insulin use: without keno terminal operator use Chronic kidney disease stage: stage 3 (moderate) Qualified Code(s): E11.22 - Type 2 diabetes mellitus with diabetic chronic kidney disease; N18.3 - Chronic kidney disease, stage 3 (moderate) (3) Hypothyroid Priority: Secondary Status: Chronic Qualifiers: Hypothyroidism type: unspecified Qualified Code(s): E03.9 - Hypothyroidism , unspecified (4) CKD (chronic kidney disease) stage 3, GFR 30-59 ml/min Priority: Secondary Status: Chronic (5) Kidney stones Priority: Secondary Status: Chronic (6) UTI (urinary tract infection) Priority: Secondary Status: Acute Qualifiers: Urinary tract infection type: site unspecified Hematuria presence: without hematuria Qualified Code(s): N39.0 - Urinary tract infection, site not specified - Discharge Medications Home Medications: Alprazolam [Xanax 0.25 MG Tablet] 0.25 mg PO Q4H PRN 11/30/14 [History] Alprazolam [Xanax 0.5 MG Tablet] 0.5 mg PO HS 11/30/14 [History] Fluticasone Propionate Nasal [Flonase] 1 spray NS DAILY 11/30/14 [History] Furosemide [Lasix] 40 mg PO DAILY 11/30/14 [History] HYDROcodone/Acet 5/325 mg [[place] 5-325 mg] 1 tab PO Q4HR PRN 11/30/14 [History] Insulin ASPART [NovoLOG] 2 - 10 unit SQ ACHS 11/30/14 [History] Latanoprost [Xalatan] 1 drop BOTH EYES HS 11/30/14 [History] Levothyroxine [Synthroid] 25 mcg PO 0630 11/30/14 [History] Magnesium Oxide [Mag-Ox] 400 mg PO BID 11/30/14 [History] Montelukast [Singulair] 10 mg PO HS 11/30/14 [History] Multivit-Min/FA/Ca Carb/Vit K [Women's 50+ Daily Tablet] 1 each PO DAILY [History] RisperiDONE [RisperDAL] 0.25 mg PO DAILY 11/30/14 [History] Sertraline [Zoloft] 150 mg PO DAILY 11/30/14 [History] Tiotropium [Spiriva] 18 mcg IH DAILY 11/30/14 [History] Tolterodine Tartrate [Detrol] 2 mg PO BID #0 11/30/14 [History] Zolpidem [Ambien] 10 mg PO HS PRN 11/30/14 [History] Ascorbic Acid [Vitamin C] 500 mg PO BID 12/14/14 [History] Cholecalciferol (Vitamin D3) [Vitamin D3] 1,000 unit PO DAILY 12/14/14 [History] Ipratropium/Albuterol Neb [Duoneb] 3 ml IH TID 12/14/14 [History] Omeprazole [PriLOSEC] 20 mg PO DAILY PRN 12/14/14 [History] Potassium Chloride 10 meq PO DAILY 12/14/14 [History] Benzocaine/Menthol Omari [Cepacol Sore Throat Lozenge] 1 lozenge PO Q4H PRN [History] GuaiFENesin Liq [Robitussin Liq] 300 mg PO Q6HR PRN 12/25/14 [History] Loratadine [Claritin] 10 mg PO DAILY PRN 12/25/14 [History] Acetaminophen [Tylenol] 650 mg PO Q6H PRN 03/10/15 [History] Acetylcysteine [C-Iqddqt-e-Cysteine] 600 mg PO TID 03/10/15 [History] Alprazolam [Xanax 0.25 MG Tablet] 0.25 mg PO TID 03/10/15 [History] Simethicone [Gas-X] 80 mg PO BID PRN 03/10/15 [History] Propylene Glycol/Peg 400 [Systane Gel Eye Drops] 1 drop BOTH EYES Q4H PRN [History] Ferrous Sulfate 325 mg PO BIDWM #60 tablet 05/09/16 [Rx] Albuterol Neb [Proventil Neb] 2.5 mg IH Q2H PRN 06/30/16 [History] Carvedilol 12.5 mg PO BID 06/30/16 [History] Docusate [Colace] 100 mg PO BID 06/30/16 [History] Fluticasone/Salmeterol [Advair 250-50 Diskus] 1 each IH BID 06/30/16 [History] Allergies/Adverse Reactions: Allergies codeine Allergy (Verified 12/14/15 10:43) unknown Penicillins Allergy (Verified 12/14/15 10:43) unknown Date of admission: 07/22/16 11:45 Primary care physician: Chu Obando MD - Patient Status Disposition: Transfer Other Condition: Fair - Discharge Instructions Hospital course: Ms. Monique is a 81 year old female who was sent from the shelter for evaluation after her daughter became concerned she might have recurrent urinary tract infection. The patient had been hospitalized at [facility] June 30- with diagnosis of UTI. Urine culture showed Escherichia coli and MDRo Klebsiella. The discharge summary 07/04/2016 states a second culture showed no MDRO and she was treated only for the Escherichia coli. At the shelter I gave her 5 days of IV gentamicin to treat MDR Klebsiella. She has remained lethargic and did not appear back to her baseline. She was evaluated in emergency room and admitted to [facility] for ongoing care needs. Initial orders were written by the emergency room physician. I saw her on July 21 and performed a history and physical. She was started on IV Azactam, vancomycin, and clindamycin for pneumonia. Urine culture was ordered and she was started on Gentamicin again to cover MDR Klebsiella that had been cultured approximately 2 weeks earlier at [facility]. WBC count ousmane to 17.8 K on July 23 but improved slightly to 14.4 K on July 24. There was a persistent left shift on the differential. On the day of transfer to [place], urine culture returned showing Proteus mirabilis and ESBL Klebsiella pneumonia with resistance to gentamicin. Sputum culture returned showing Morganella morganii. On the morning of July 24 the patient abruptly developed respiratory distress. A CODE BLUE was called resuscitative efforts were begun. Respiratory therapist suctioned copious amounts of thick mucus and mucous plugs from her lungs. She regained cardiopulmonary stability after several minutes of resuscitative efforts. She required epinephrine and atropine but no defibrillation was done. Arrangements were quickly made for her to be transferred to [facility] by MICU for ongoing care needs. - Time Spent with Patient Total time spent providing and/or coordinating discharge services: - Constitutional Vitals: Temp Pulse Resp BP Pulse Ox 97.8 F 87 30 124/65 94 07/23/16 23:49 07/24/16 06:45 07/24/16 06:45 07/24/16 06:45 07/24/16 06:45
[2016-07-24 10:54] LABS: ABG HCO3 28.1 mEQ/L (21-27); ABG PCO2 66 mmHg (35-45); ABG PH 7.24 pH Units (7.32-7.45); ABG PO2 62 mmHg (85-104)
[2016-07-24 10:55] LABS: ABG Base Excess 0.6 mEq/L (-2.0 to 3.0); ABG Oxygen Saturation 86 % (95-98); ABG TCO2 30.1 mEq/L (20-26); Blood Gas Liter Flow 9 L/MIN; Blood Gas PEEP 5 cm H2O; Blood Gas Respiration Rate 14; Blood Gas VT 500 cc
[2016-07-24] MEDS ORDERED: Aminoglycoside Consult 1 EACH MC ONE (11:34)
[2016-07-26 10:32] VITALS: BP 124/65
== END 2016-07-24 11:35 | disposition short-term general hospital (02) | DRG 208 ==
LOC: EMEROOPIK 19:15 → INPPIK 19:15
PROVIDERS: ADMIT Internal Medicine; ATTEND Internal Medicine